=== PATIENT | male | born 1980 | race Two or more races ===

== ENCOUNTER 2018-08-14 21:58 | Emergency (ER) | payer MEDICAID, OTHER ==
--- NOTE | 2018-08-14 22:28 | EDPHY ---
H & P Stated Complaint: Lymphoma Pt last chemo x 5 wk ago c/o abdominal pain x2day and BRB in stool - Personal History Current Tetanus/Diphtheria Vaccine: No Current Tetanus Diphtheria and Acellular Pertussis (TDAP): No - Medical/Surgical History Hx Asthma: No Hx Chronic Respiratory Disease: No Hx Diabetes: No Hx Cardiac Disease: No Hx Renal Disease: No Hx Cirrhosis: No Hx Alcoholism: No Hx HIV/AIDS: No Hx Splenectomy or Spleen Trauma: No Other PMH: Lymphoma type 4, kidney stones - Social History Smoking Status: Former smoker Time Seen by Provider: 08/14/18 22:20 HPI/ROS: CHIEF COMPLAINT: Bloody appearance to stool x1 HISTORY OF PRESENT ILLNESS: 37-year-old homeless male history of lymphoma last treatment 7 weeks ago at [facility], had a bowel movement this evening described as loose and bloody appearing with associated abdominal cramping. Now resolved. No nausea or vomiting. No fever or chills. No flu- like symptoms. No unusual bruising bleeding. No gingival bleeding. No headache. REVIEW OF SYSTEMS: 10 systems reviewed and negative with the exception of the elements mentioned in the history of present illness PAST MEDICAL & SURGICAL HISTORY: lymphoma currently receiving treatment [facility] last treatment 7 weeks ago SOCIAL HISTORY: Nonsmoker. Homeless. PHYSICAL EXAM (Prior to examination, patient consented to physical exam, hands were washed and my usual and customary physical exam procedures followed) 1) GENERAL: Well-developed, well-nourished, alert and oriented. Appears to be in no acute distress. 2) HEAD: Normocephalic, atraumatic 3) HEENT: Pupils equal, round, reactive to light bilaterally. Sclera anicteric. Nasopharynx, oropharynx, clear, no lesions. Moist Mucous membranes. 4) NECK: Full range of motion, no meningeal signs. 5) LUNGS: Clear auscultation bilaterally, no wheezes, no rhonchi, no retractions. 6) HEART: Regular rate and rhythm, no murmur, no heave, no gallop. 7) ABDOMEN: No guarding, no rebound, no focal tenderness, negative McBurney's, negative Horton's, negative Rovsing's, negative peritoneal sign, I am unable to elicit any abdominal pain on exam. 8) MUSCULOSKELETAL: Moving all extremities, no focal areas of tenderness, no obvious trauma. No peripheral edema or discoloration. 9) BACK: No CVA tenderness, no midline vertebral tenderness, no fluctuance, no step-off, no obvious trauma, no visual or palpable abnormality. 10) SKIN: No rash, no petechiae. 11) Psychiatric: Patient is oriented X 3, there is no agitation. 12) rectal: Normal rectal tone, brown stool on glove. DIFFERENTIAL DIAGNOSIS: In no particular order including but not limited to diverticulitis, GI bleed, gastroenteritis (Mary Harp) Constitutional: Initial Vital Signs Temperature (C) 36.7 C 08/14/18 22:08 Heart Rate 72 08/14/18 22:08 Respiratory Rate 16 08/14/18 22:08 Blood Pressure 98/61 L 08/14/18 22:08 O2 Sat (%) 95 08/14/18 22:08 O2 Delivery Mode Room Air Allergies/Adverse Reactions: Penicillins Allergy (Verified 08/14/18 22:06) pork derived (porcine) Allergy (Verified 08/14/18 22:06) turkey Allergy (Verified 08/14/18 22:06) Home Medications: Medication Instructions Recorded NK [No Known Home Meds] 08/14/18 Medical Decision Making - Diagnostics Imaging Results: Imaging Impressions Abdomen CT 08/14/18 22:47 Impression: 1. Constipation. 2. No CT evidence of appendicitis, abscess or bowel obstruction. 3. No evidence of recurrent lymphoma. No splenomegaly. Findings and recommendations discussed with Emergency Department physicianMary PAC at 23:18 hour, 08/14/2018. Final report concurs with initial preliminary interpretation. ED Course/Re-evaluation: 11:18 p.m.: CT imaging at this time is negative for acute surgical pathology, negative for foreign body. Specifically, patient has informed me he recently has been experiencing suicidal ideation, informs me that if he leaves the ER he will plan on jumping in front of a vehicle. He mentioned to me that a few days ago he attempted to hang himself by wrapping a belt around his neck and around a curtain mine however the mine broke and fell on top of him. He has no complaints of neck pain , no ligature dodge on exam. I do not think that dedicated imaging of the neck indicated at this time. He also informs that 1-2 weeks ago he swallowed a large women's broach and never noticed it come out his bowel movement. This was a suicide attempt also. There is no evidence of foreign body on CT today, no evidence of intestinal perforation. At this time will plan on placing the patient on M1 hold. I have reviewed his ER report from Emergency Department a few days ago with similar complaints of suicidality. I discussed with the patient he stay this he would benefit from inpatient mental health evaluation therapy, secondary to his worsening depression and suicidality from managing his cancer. Malingering did enter my differential diagnosis. However patient is adamant that if he is discharged he will plan on killing himself. Midnight: Care turned over to Dr. Orellana. (Mary Harp) PHYSICIAN DOCUMENTATION: The patient was evaluated and managed by the Physician [employer]. My co- signature indicates that I have reviewed this chart and I agree with the findings and plan of care as documented. I am the secondary supervising physician. 5:30 a.m.- Patient stable throughout the night sleeping for most of it. Continues to await mental health evaluation. 7:00 a.m.- Case is signed out to Dr. Willett oncoming provider pending mental health evaluation. (Marli Orellana) Care was signed out to me at 7:00 a.m.. I re-evaluated the patient at 7:05 a.m.. He is resting comfortably. He is stable. He is awaiting mental health evaluation Patient has been evaluated by mental health. They feel he is most appropriate for outpatient management. They have provided resources and will taxi the patient to walk-in Clinic. (Warren Wileltt) - Data Points Laboratory Results: Laboratory Results 08/14/18 22:30 08/14/18 22:30 08/14/18 08/14/18 08/14/18 22:30 22:30 22:30 WBC 5.13 10^3/uL 10^3/uL (3.80-9.50) RBC 5.23 10^6/uL 10^6/uL (4.40-6.38) Hgb 14.5 g/dL g/dL (13.7-17.5) Hct 44.4 % % (40.0-51.0) MCV 84.9 fL fL (81.5-99.8) MCH 27.7 pg L pg (27.9-34.1) MCHC 32.7 g/dL g/dL (32.4-36.7) RDW 14.6 % % (11.5-15.2) Plt Count 279 10^3/uL 10^3/uL (150-400) MPV 10.7 fL fL (8.7-11.7) Neut % (Auto) 65.8 % % (39.3-74.2) Lymph % (Auto) 20.9 % % (15.0-45.0) [place] % (Auto) 10.9 % % (4.5-13.0) Eos % (Auto) 1.6 % % (0.6-7.6) Baso % (Auto) 0.6 % % (0.3-1.7) Nucleat RBC Rel Count 0.0 % % (0.0-0.2) Absolute Neuts (auto) 3.38 10^3/uL 10^3/uL (1.70-6.50) Absolute Lymphs (auto) 1.07 10^3/uL 10^3/uL (1.00-3.00) Absolute Monos (auto) 0.56 10^3/uL 10^3/uL (0.30-0.80) Absolute Eos (auto) 0.08 10^3/uL 10^3/uL (0.03-0.40) Absolute Basos (auto) 0.03 10^3/uL 10^3/uL (0.02-0.10) Absolute Nucleated RBC 0.00 10^3/uL 10^3/uL (0-0.01) Immature Gran % 0.2 % % (0.0-1.1) Immature Gran # 0.01 10^3/uL 10^3/uL (0.00-0.10) Sodium 141 mEq/L mEq/L (135-145) Potassium 4.0 mEq/L mEq/L (3.5-5.2) Chloride 107 mEq/L mEq/L (97-110) Carbon Dioxide 25 mEq/l mEq/l (22-31) Anion Gap 9 mEq/L mEq/L (6-14) BUN 15 mg/dL mg/dL (7-23) Creatinine 0.8 mg/dL mg/dL (0.7-1.3) Estimated GFR > 60 Glucose 96 mg/dL mg/dL (70-100) Calcium 9.4 mg/dL mg/dL (8.5-10.4) Total Bilirubin 0.5 mg/dL mg/dL (0.1-1.4) Conjugated Bilirubin 0.3 mg/dL mg/dL (0.0-0.5) Unconjugated Bilirubin 0.2 mg/dL mg/dL (0.0-1.1) AST 27 IU/L IU/L (17-59) ALT 30 IU/L IU/L (21-72) Alkaline Phosphatase 82 IU/L IU/L (38-126) Total Protein 7.2 g/dL g/dL (6.3-8.2) Albumin 4.4 g/dL g/dL (3.5-5.0) Lipase 197 IU/L IU/L (23-300) Stool Occult Bld Scrn Urine Opiates Screen Urine Barbiturates Ur Phencyclidine Scrn Ur Amphetamine Screen U Benzodiazepines Scrn Urine Cocaine Screen U Marijuana (THC) Screen Ethyl Alcohol < 10 mg/dL mg/dL (0-10) 08/14/18 08/14/18 22:28 00:13 WBC RBC Hgb Hct MCV MCH MCHC RDW Plt Count MPV Neut % (Auto) Lymph % (Auto) [place] % (Auto) Eos % (Auto) Baso % (Auto) Nucleat RBC Rel Count Absolute Neuts (auto) Absolute Lymphs (auto) Absolute Monos (auto) Absolute Eos (auto) Absolute Basos (auto) Absolute Nucleated RBC Immature Gran % Immature Gran # Sodium Potassium Chloride Carbon Dioxide Anion Gap BUN Creatinine Estimated GFR Glucose Calcium Total Bilirubin Conjugated Bilirubin Unconjugated Bilirubin AST ALT Alkaline Phosphatase Total Protein Albumin Lipase Stool Occult Bld Scrn NEGATIVE (NEGATIVE) Urine Opiates Screen NEGATIVE (NEGATIVE) Urine Barbiturates NEGATIVE (NEGATIVE) Ur Phencyclidine Scrn NEGATIVE (NEGATIVE) Ur Amphetamine Screen NEGATIVE (NEGATIVE) U Benzodiazepines Scrn NEGATIVE (NEGATIVE) Urine Cocaine Screen NEGATIVE (NEGATIVE) U Marijuana (THC) Screen NEGATIVE (NEGATIVE) Ethyl Alcohol Departure - Departure Disposition: Home, Routine, Self-Care Clinical Impression: Depression Qualifiers: Depression Type: unspecified Qualified Code(s): F32.9 - Major depressive disorder, single episode, unspecified Condition: Good Instructions: Depression (ED) Additional Instructions: Follow-up with resources provided by mental health. We are taxi Ng you to mental Health walk-in clinic. Please discuss your treatment plan with them. Return at any point for worsening symptoms. Referrals: NONE *PRIMARY CARE P,. [Primary Care Provider] - As per Instructions [facility],. [Clinic] - 1 day without fail
[2018-08-14 22:43] LABS: PLATELET COUNT 279 10^3/uL (150-400)
[2018-08-14] MEDS ORDERED: IOPAMIDOL (ISOVUE 370) 100 ML BTL IV ONE (22:53)
[2018-08-15 09:05] VITALS: BP 110/79
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
--- NOTE | 2018-08-15 10:38 | ASMTTCLDSP ---
TLC Discharge Disposition Disposition Notes: Notes: Pt stated commitment or ability to keep self safe, denied thoughts of self harm or harm to others. Pt expressed agreement for the ED to provide him with cab voucher transportation to take [facility] to the [facility] for follow up. Pt was also given information for coordinated entry process to [facility]. Pt was given local hotline information and [facility] brochure After an Attempt and encouraged to follow up with [facility]. Discharge Concerns/Recommendations: Notes: In consultation with [facility] ED physician, Warren Willett MD, Dr. Willett concurred that pt does not appear to meet 27-65 criteria requiring psychiatric hospitalization as pt does not appear to be an imminent risk of harm to self/others/gravely disabled due to a mental illness condition. Dr. Willett provided verbal order read back vacating M1 hold at 0850 hrs. Was patient given the Answers: Not applicable Inpatient Behavioral Health Prohibited Belongings List while in the ED? Psychiatrist vacating M1 Warren Willett MD Hold: Date and time M1 hold 08/15/2018 08:50 AM vacated (time format is hh:mm): Date Signed: 08/15/2018 10:37 AM Electronically Signed By:Peter Stafford
== END 2018-08-15 09:35 | disposition home or self-care (01) ==
PROC: GZ11ZZZ Psychological Tests, Personality and Behavioral (ICD-10-PCS; principal; 2018-08-14)
DX: F32.9 Major depressive disorder, single episode, unspecified (principal); K92.1 Melena; Z59.0 Homelessness
CPT/HCPCS: 80305; G0480; Q9967

== ENCOUNTER 2018-08-16 10:57 | Emergency (ER) | payer MEDICAID ==
--- NOTE | 2018-08-16 11:08 | EDPHY ---
HPI/HX/ROS/PE/MDM Narrative: CLINICAL IMPRESSION: Depression, history of suicidal ideation ASSESSMENT/PLAN: Patient is a 37-year-old [facility] male with a history of stage IV lymphoma who presents to the emergency department after being placed on an M1 hold for complaints of suicidal ideation. Patient is afebrile and nontoxic-appearing, he is in no acute distress. Physical examination is unremarkable. CBC revealed no evidence of leukocytosis or anemia. His vital signs were reviewed and no findings to suggest bacterial illness or infectious process. Metabolic panel with no metabolic abnormalities or acute kidney injury. Alcohol negative and Drug screen negative. There were no clinical findings to suggest intoxication, organic etiology, metabolic abnormality or other toxidrome. The patient was formally evaluated by behavioral health in the emergency department. After formal evaluation, the patient was able to contract for safety with a plan for follow-up next week with [facility] on Sunday. He was also set up at the [facility] for housing. On repeat exam the patient is well appearing with no complaints and is comfortable with plan, he does not feel in imminent danger to self or others. Return precautions discussed- he will return for recurrent SI, HI, increased or uncontrolled behaviors or for any other concerning symptom. Patient verbalizes understanding and is in agreement with plan. Case, results and plan of care discussed with Dr. Cowart. DIFFERENTIAL DX: Psychosis including but not limited to chronic psychosis, medication noncompliance, medication side effect, depression and illicit drug use. ED COURSE: 11:35 a.m.: Case discussed with Dr. Cowart CHIEF COMPLAINT: Depression, feeling of hopelessness HPI: Patient is a 37-year-old male who is homeless with significant medical history of lymphoma who presents to the emergency department after being placed on an M1 hold for suicidal ideation. Last lymphoma treatment at [place] 7 weeks ago. Patient reports himself that since his discharge from the emergency department yesterday he is continuing to feel hopeless. He followed up with behavioral services as recommended with similar complaints of suicidality and was sent here for further evaluation. Patient denies any suicidal ideation to myself, he reports he is just feeling hopeless secondary to his stage IV lymphoma. He is new to the area, his care was primarily in the [place] of and he is feeling unsure of his support system, he is also homeless. Patient denies any other complaints. He has had no fevers, chills, chest pain or shortness of breath. He denies any abdominal pain or continued bloody stools. Denies any urinary symptoms to include dysuria, hematuria or frequency. Bowel movements have been regular. In reviewing patient's records, patient had an extensive workup initiated 2 days prior for complaints of abdominal cramping and bloody stool. Blood work was unremarkable, CT showed no acute findings or evidence of lymphoma recurrence. He was formally evaluated by [facility] yesterday morning and deemed stable for discharge with outpatient follow-up. Patient was seen at [facility] recently for similar complaints of suicidality. Multiple reported suicide attempts in reviewing his records including hanging himself and swallowing a sharp foreign body. PMH: Lymphoma, chronic pain, kidney stones Pertinent Past Surgical History: Denies Family History: Noncontributory Social History: Former smoker REVIEW OF SYSTEMS: All other systems negative Constitutional: No fever, no chills, appetite change. Eyes: No discharge, vision change ENT: No sore throat, congestion, ear pain. Cardiovascular: No chest pain, no palpitations. Respiratory: No cough, no shortness of breath. Gastrointestinal: No abdominal pain, no vomiting, diarrhea. Genitourinary: No hematuria, dysuria, flank pain, pelvic pain Musculoskeletal: No back pain, joint swelling, joint pain, myalgias. Skin: No rashes, color change. Neurological: No headache, dizziness, weakness. PHYSICAL EXAM: General Appearance: Alert, oriented, appropriate, cooperative, NAD, well hydrated, non-toxic appearing, VSS, no hypoxia. HENT: Normocephalic, atraumatic. Bilateral external ears are normal. Bilateral tympanic membranes are normal with pearly mcdonough reflex. Nares are clear, mucosa is pink. Oropharynx is clear, uvula is midline. There is no tonsillar enlargement or exudate. The dentition is normal. Eyes: PERRLA, no acute vision change, nystagmus, swelling, discharge, pain or photosensitivity. Conjunctiva pink, no pallor or injection Neck: Supple, nontender, no lymphadenopathy, no midline pain, FROM, no meningismus. Respiratory: There are no retractions, lungs are clear to auscultation. Cardiac: Regular rate and rhythm, no murmurs or gallops. Gastrointestinal: Abdomen is soft, nontender, bowel sounds normal, no masses/ hernia, no rigidity, guarding or focal peritoneal findings. Neurological: Alert and oriented x 3, CN 2-12 grossly intact, normal gait no ataxia, DTR's intact, normal sensation and strength Skin: Warm, dry, no rashes, no nodules on palpation. Musculoskeletal: Extremities are symmetrical, full range of motion, no tenderness, deformity, swelling, or erythema. Psychiatric: Patient is oriented X 3, there is no agitation. Flat affect. MEDICAL DECISION MAKING: Patient was seen independently. Secondary supervising physician at time of evaluation was Dr. Cowart. Diagnosis: Depression, history of suicidal thought. New, requires workup Summary: See Assessment and Plan for summary of ED visit Clinical lab tests: ordered / reviewed. Independent visualization of images, tracing, or specimens: Yes. Decision to obtain medical records or history from someone other than the patient: Yes Review / Summarize previous medical records: Yes Discussed patient with another provider: Yes, Dr. Cowart Patient Progress: Stable, discharged to respite care. (Yu Cook) ED Course: The patient was evaluated and managed by the physician ophthalmology assistant. I have reviewed this chart and I agree with the findings and plan of care as documented , as indicated by my signature. I am the secondary supervising physician. ( Kristy Cowart) MDM: The patient was evaluated and managed by the physician ophthalmology assistant. I have reviewed this chart and I agree with the findings and plan of care as documented , as indicated by my signature. I am the secondary supervising physician. ( Kristy Cowart) - Data Points Laboratory Results: Laboratory Results 08/16/18 11:00 08/16/18 11:00 08/16/18 08/16/18 08/16/18 11:20 11:00 11:00 WBC 4.71 10^3/uL 10^3/uL (3.80-9.50) RBC 5.50 10^6/uL 10^6/uL (4.40-6.38) Hgb 15.4 g/dL g/dL (13.7-17.5) Hct 48.3 % % (40.0-51.0) MCV 87.8 fL fL (81.5-99.8) MCH 28.0 pg pg (27.9-34.1) MCHC 31.9 g/dL L g/dL (32.4-36.7) RDW 14.8 % % (11.5-15.2) Plt Count 272 10^3/uL 10^3/uL (150-400) MPV 11.2 fL fL (8.7-11.7) Neut % (Auto) 65.9 % % (39.3-74.2) Lymph % (Auto) 23.1 % % (15.0-45.0) Bay % (Auto) 8.5 % % (4.5-13.0) Eos % (Auto) 1.5 % % (0.6-7.6) Baso % (Auto) 0.8 % % (0.3-1.7) Nucleat RBC Rel Count 0.0 % % (0.0-0.2) Absolute Neuts (auto) 3.10 10^3/uL 10^3/uL (1.70-6.50) Absolute Lymphs (auto) 1.09 10^3/uL 10^3/uL (1.00-3.00) Absolute Monos (auto) 0.40 10^3/uL 10^3/uL (0.30-0.80) Absolute Eos (auto) 0.07 10^3/uL 10^3/uL (0.03-0.40) Absolute Basos (auto) 0.04 10^3/uL 10^3/uL (0.02-0.10) Absolute Nucleated RBC 0.00 10^3/uL 10^3/uL (0-0.01) Immature Gran % 0.2 % % (0.0-1.1) Immature Gran # 0.01 10^3/uL 10^3/uL (0.00-0.10) Sodium 141 mEq/L mEq/L (135-145) Potassium 5.1 mEq/L mEq/L (3.5-5.2) Chloride 109 mEq/L mEq/L (97-110) Carbon Dioxide 23 mEq/l mEq/l (22-31) Anion Gap 9 mEq/L mEq/L (6-14) BUN 14 mg/dL mg/dL (7-23) Creatinine 0.9 mg/dL mg/dL (0.7-1.3) Estimated GFR > 60 Glucose 93 mg/dL mg/dL (70-100) Calcium 9.6 mg/dL mg/dL (8.5-10.4) Urine Opiates Screen NEGATIVE (NEGATIVE) Urine Barbiturates NEGATIVE (NEGATIVE) Ur Phencyclidine Scrn NEGATIVE (NEGATIVE) Ur Amphetamine Screen NEGATIVE (NEGATIVE) U Benzodiazepines Scrn NEGATIVE (NEGATIVE) Urine Cocaine Screen NEGATIVE (NEGATIVE) U Marijuana (THC) Screen NEGATIVE (NEGATIVE) Ethyl Alcohol < 10 mg/dL mg/dL (0-10) General Initial Vital Signs: Initial Vital Signs Temperature (C) 36.5 C 08/16/18 10:57 Heart Rate 47 L 08/16/18 10:57 Respiratory Rate 18 08/16/18 10:57 Blood Pressure 111/72 08/16/18 10:57 O2 Sat (%) 98 08/16/18 10:57 O2 Delivery Mode Room Air Allergies/Adverse Reactions: acetaminophen [From Tylenol] Allergy (Verified 08/16/18 11:05) aspirin Allergy (Verified 08/16/18 11:05) morphine Allergy (Verified 08/16/18 11:05) penicillin G Allergy (Verified 08/16/18 11:05) Penicillins Allergy (Verified 08/16/18 11:05) pork derived (porcine) Allergy (Verified 08/14/18 22:06) turkey Allergy (Verified 08/14/18 22:06) Home Medications: Medication Instructions Recorded Flexeril 10 MG (*) 08/16/18 Lidoderm 08/16/18 oxyCODONE CR 08/16/18 Departure - Departure Disposition: Home, Routine, Self-Care Clinical Impression: Depression, Suicidal thoughts Condition: Good Instructions: Depression (ED) Additional Instructions: DISCHARGE INSTRUCTIONS FROM YOUR DOCTOR Thank you for visiting our emergency department today. Please keep in mind that discharge from the emergency department does not mean that there is nothing wrong - it simply means that we have not identified an emergency condition that requires further evaluation or treatment in the hospital. You should always plan to follow up with primary care for re-evaluation of your condition in the next 2-3 days. 1. Please follow-up with the mental health resources provided in the ED today. 2. [facility] does operate a 24/7 psychiatric crisis unit located at [address] [place] [address]. The telephone number for the 24 hour crisis center is [phone]. 3. Please return to the ED if you are feeling suicidal, having thoughts of harming yourself/others or should you feel unsafe or have worsening symptoms. You have an appointment scheduled at [facility] on Sunday at 10:30 a.m., please do not miss this appointment. People present with illnesses and injuries in different ways, and it is always possible that we have missed something. You may always return for re-evaluation if symptoms worsen or if they are not improving or if you develop new/different symptoms. Again, thank you for choosing our emergency department. We hope that you feel better. Referrals: NONE *PRIMARY CARE P,. [Primary Care Provider] - As per Instructions
[2018-08-16 11:13] LABS: PLATELET COUNT 272 10^3/uL (150-400)
--- NOTE | 2018-08-16 17:35 | ASMTTCLDSP ---
TLC Discharge Disposition Disposition: Answers: Discharge Disposition Notes: Notes: In consultation with [facility] ED physician, Khushi Aburto MD, and on-call psychiatrist, Rich Danielle MD, both concurred that pt does not appear to meet 27-65 criteria requiring psychiatric hospitalization as pt does not appear to be an imminent risk of harm to self/others/gravely disabled due to a mental illness condition Discharge Concerns/Recommendations: Notes: [place] arraganged an appt with [facility] for sunday with Dr. Hatfield @ 10:30 provided a cab voucher to the long term. PT was also given [employer] resources for the area Was patient given the Answers: Not applicable Inpatient Behavioral Health Prohibited Belongings List while in the ED? Type of Hold: Answers: M1/72-hour Hold Hold initiated by: Answers: Other Notes: [facility] Date Signed: 08/16/2018 05:34 PM Electronically Signed By:Milo Todd
[2018-08-16 17:53] VITALS: BP 121/74
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
== END 2018-08-16 17:52 | disposition home or self-care (01) ==
LOC: EDUNIT#
DX: R45.851 Suicidal ideations (principal); F32.9 Major depressive disorder, single episode, unspecified; C85.90 Non-Hodgkin lymphoma, unspecified, unspecified site; Z59.0 Homelessness
CPT/HCPCS: 80305; G0480